=== PATIENT | male | born 1995 | race Caucasian/White ===

== ENCOUNTER 2019-07-22 15:18 | Emergency (ER) | payer OTHER ==
[2019-07-22 15:23] VITALS: BP 142/91; PULSE 87; TEMP 97.9; BMI 38.3
--- NOTE | 2019-07-22 16:08 | PDOC ---
History of Present Illness - General Chief Complaint: Injury Stated Complaint: LT FOOT INJURY Time Seen by Provider: 07/22/19 15:49 History Source: Patient Exam Limitations: Clinical Condition - History of Present Illness Initial Comments: 07/22/19 16:08 Patient with no significant past medical history present with complaint of persistent pain and swelling to dorsum of left foot and lateral aspect of left ankle status post twisting ankle on a curbside 2 days ago. Patient reported had sprained her ankle multiple times in the past. Denies weakness to left ankle or foot. Patient did not take anything for pain. Denies fall or hitting head or loss of consciousness. Denies any other symptoms Occurred: reports: other (2 days ago) Pain Location: reports: lower extremity (left ankle) Loss of Consciousness: no loss of consciousness Past History - Past Medical History Allergies/Adverse Reactions: Allergies Allergy/AdvReac Type Severity Reaction Status Date / Time No Known Allergies Allergy Verified 07/22/19 15:36 Home Medications: Ambulatory Orders Ibuprofen 800 mg PO Q8H PRN #20 tablet 07/22/19 Asthma: Yes COPD: No - Psycho Social/Smoking Cessation Hx Smoking Status: No Smoking History: Never smoked Number of Cigarettes Smoked Daily: 0 Hx Alcohol Use: No Drug/Substance Use Hx: No Substance Use Type: None Review of Systems - Review of Systems Able to Perform ROS?: Yes Is the patient limited Faroese proficient: No Constitutional: No: Chills, Fever, Malaise HEENTM: No: Symptoms Reported, See HPI, Eye Pain, Blurred Vision, Tearing, Recent change in vision, Double Vision, Cataracts, Ear Pain, Ocular Prothesis, Ear Discharge, Nose Pain, Nose Congestion, Tinnitus, Nose Bleeding, Hearing Loss , Throat Pain, Throat Swelling, Mouth Pain, Dental Problems, Difficulty Swallowing, Mouth Swelling, Other Respiratory: No: Symptoms reported, See HPI, Cough, Orthopnea, Shortness of Breath, SOB with Exertion, SOB at Rest, Stridor, Wheezing, Productive cough, Hemoptysis, Other Cardiac (ROS): No: Symptoms Reported ABD/GI: No: Symptoms Reported Musculoskeletal: Yes: Symptoms Reported, See HPI, Joint Pain (left ankle pain), Joint Swelling (left ankle), Muscle Pain (lateral aspect of of left ankle and proximal foot) Neurological: No: Symptoms reported, Numbness, Paresthesia, Tingling All Other Systems: Reviewed and Negative *Physical Exam - Vital Signs Last Vital Signs Temp Pulse Resp BP Pulse Ox 97.9 F 87 18 142/91 99 07/22/19 15:21 07/22/19 15:21 07/22/19 15:21 07/22/19 15:21 07/22/19 15:21 - Physical Exam 07/22/19 16:06 GENERAL: Well developed, well nourished. Awake and alert in mild acute distress. PULMONARY: No evidence of respiratory distress. MUSCULOSKELETAL : Moderate tenderness to lateral aspect of of proximal aspect of left foot. Moderate tenderness to lateral malleolus of left foot with moderate swelling over lateral malleolus of left foot and dorsum of proximal aspect of left foot SKIN: Warm and dry. Normal capillary refill. Moderate swelling over dorsum of left foot and lateral malleolus of left ankle NEUROLOGICAL: Alert, awake, appropriate. No motor deficits in the lower extremities. Gait is normal with mild limp from ankle pain PSYCHIATRIC: Cooperative. Good eye contact. Appropriate mood and affect. General Appearance: Yes: Nourished, Appropriately Dressed, Mild Distress ED Treatment Course - RADIOLOGY Radiology Studies Ordered: Category Date Time Status ANKLE & FOOT-LEFT* [RAD] Stat Radiology 07/22/19 15:58 Ordered Medical Decision Making - Medical Decision Making 07/22/19 16:09 Patient with no significant past medical history present with complaint of persistent pain and swelling to dorsum of left foot and lateral aspect of left ankle status post twisting ankle on a curbside 2 days ago. Patient reported had sprained her ankle multiple times in the past. Denies weakness to left ankle or foot. Patient did not take anything for pain. Denies fall or hitting head or loss of consciousness. Denies any other symptoms Exam significant for moderate tenderness to lateral malleolus and proximal dorsum of left foot with localized swelling over lateral malleolus and dorsum of left foot. Negative anterior and posterior drawer test. Symptoms likely ankle sprain versus less likely fracture. Left ankle and foot x -ray ordered to rule out fracture 07/22/19 16:42 X-ray of left ankle and foot shows no acute fracture or dislocation. Patient symptoms likely ankle sprain and stable for the to continue home ankle support brace and crutches to keep weight of left ankle and foot with advised to do hot compresses and take Motrin as needed for pain with orthopedics follow-up Discharge - Discharge Information Problems reviewed: Yes Clinical Impression/Diagnosis: Left ankle sprain Qualifiers: Encounter type: initial encounter Involved ligament of ankle: unspecified ligament Qualified Code(s): S93.402A - Sprain of unspecified ligament of left ankle, initial encounter Condition: Stable Disposition: HOME - Admission No - Additional Discharge Information Prescriptions: Ibuprofen 800 mg PO Q8H PRN #20 tablet PRN Reason: pain - Follow up/Referral Referrals: Gregorio Sommer DO [Staff Physician] - - Patient Discharge Instructions Patient Printed Discharge Instructions: DI for Ankle Sprain Additional Instructions: X-ray of your right ankle and foot shows no acute fracture or dislocation. Your symptoms likely ankle sprain. Continue using home ankle brace daily and crutches to keep weight off left foot. Take prescribed Motrin as needed for pain. Apply hot compress to ankle swelling as needed. Soak left foot in [place] salt water to help with swelling. Follow-up referred to orthopedics if symptoms persist for more than 5 days - Post Discharge Activity
[2019-07-22] MEDS ORDERED: IBUPROFEN 400 MG TABLET (FP) PO ONE ×2 (16:30→16:44)
== END 2019-07-22 16:57 | disposition home or self-care (01) ==
LOC: JERFT 15:18
DX: S93.402A Sprain of unspecified ligament of left ankle, initial encounter (principal); X50.1XXA Overexertion from prolonged static or awkward postures, initial encounter; Y93.01 Activity, walking, marching and hiking; Y92.480 Sidewalk as the place of occurrence of the external cause; Y99.8 Other external cause status
CPT/HCPCS: 73610-TC-LT-FY; 73630-TC-LT; 99283-25

== ENCOUNTER 2020-07-20 01:03 | Emergency (ER) | payer BC, OTHER ==
[2020-07-20 01:23] VITALS: BP 161/96; PULSE 90; TEMP 98.5; BMI 37.1
[2020-07-20] MEDS ORDERED: IBUPROFEN 600 MG TABLET (FP) PO ONE ×2 (02:23→02:28)
[2020-07-20] MEDS ORDERED: LIDOCAINE 5% TOPICAL PATCH TP ONE (02:23)
[2020-07-20] MEDS ORDERED: LIDOCAINE 5% TOPICAL PATCH ONE (02:28)
[2020-07-20] MEDS ORDERED: METHOCARBAMOL 500 MG TABLET PO ONE (02:35)
[2020-07-20] MEDS ORDERED: METHOCARBAMOL 500 MG TABLET ONE (02:38)
[2020-07-20] MEDS ORDERED: LIDOCAINE PATCH REMOVAL MC SCH (22:00)
== END 2020-07-20 03:23 | disposition home or self-care (01) ==
LOC: JER 01:03
DX: M54.5 Low back pain (principal)
CPT/HCPCS: 99283-25